=== PATIENT | female | born 1965 | race Caucasian/White ===

== ENCOUNTER → 2016-05-12 | Outpatient (CLI) | payer MEDICAID | LOC: FIMAGING 14:03 | PROVIDERS: ATTEND Nurse Practitioner Women's Health | DX: D25.9 Leiomyoma of uterus, unspecified (principal); N83.202 Unspecified ovarian cyst, left side; N85.2 Hypertrophy of uterus ==

== ENCOUNTER → 2016-06-14 | Outpatient (CLI) | payer MEDICAID ==
[~2016-06-14] MED LIST: GADOBUTROL 10 ML VIAL IVP ONE
== END ==
LOC: FIMAGING 12:58
PROVIDERS: ATTEND Radiology Diagnostic Radiology
DX: D25.2 Subserosal leiomyoma of uterus (principal); D25.1 Intramural leiomyoma of uterus; N85.2 Hypertrophy of uterus
CPT/HCPCS: A9585

== ENCOUNTER 2016-07-20 07:46 | Observation (INO) | payer MEDICAID ==
[2016-07-20] MEDS ORDERED: NS 1,000 ML IV ONE (07:54)
[2016-07-20] MEDS ORDERED: SCOPOLAMINE HYDROBROMIDE 1.5 MG PATCH TD ONE (07:54)
[2016-07-20] MEDS ORDERED: KETOROLAC 30 MG/1 ML SDV IVP ONE ×2 (07:54→09:30)
[2016-07-20] MEDS ORDERED: NALOXONE HCL 0.4 MG/ML INJ ONE (09:00)
[2016-07-20] MEDS ORDERED: MIDAZOLAM 2 MG/2 ML VIAL ONE (09:00)
[2016-07-20] MEDS ORDERED: FLUMAZENIL 0.5 MG/5 ML MDV IVP ONE (09:00)
[2016-07-20] MEDS ORDERED: fentaNYL 100 MCG/2 ML INJ ONE ×2 (09:01)
[2016-07-20] MEDS ORDERED: HYDROmorphONE/DILAUDID 6 MG/30 ML PCA IV ONE (09:26)
[2016-07-20] MEDS ORDERED: IOPAMIDOL (ISOVUE-300) 100 ML BTL IV ONE (10:00)
[2016-07-20] MEDS ORDERED: ONDANSETRON 4 MG/2 ML VIAL ONE ×2 (11:10→11:34)
[2016-07-20] MEDS ORDERED: MAGNESIUM HYDROXIDE 30 ML UDCUP PO PRN (11:39)
[2016-07-20] MEDS ORDERED: ONDANSETRON 4 MG/2 ML VIAL IVP PRN ×2 (11:39→12:30)
[2016-07-20] MEDS ORDERED: LACTULOSE 20 GM/30 ML UDCUP PO PRN (11:39)
[2016-07-20] MEDS ORDERED: BISACODYL 10 MG SUPP PR PRN (11:39)
[2016-07-20] MEDS ORDERED: POLYETHYLENE GLYCOL 3350 17 GM PKT PO PRN (11:39)
[2016-07-20] MEDS ORDERED: oxyCODONE IR 5 MG TAB PO PRN (11:39)
[2016-07-20] MEDS ORDERED: NALOXONE HCL 0.4 MG/ML INJ IVP PRN (11:41)
[2016-07-20] MEDS ORDERED: HYDROmorphONE/DILAUDID 6 MG/30 ML PCA IV PRN (11:41)
--- NOTE | 2016-07-20 11:43 | POSTOPPROG ---
Post Op Note Date of Operation: 07/20/16 Surgeon: Solange Vazquez Anesthesia: IV Sedation (fentanyl and versed) Pre-op Diagnosis: large fibroids Post-op Diagnosis: same Indication: significant symptoms Procedure: UFE Findings: Large bilateral UA with large fibroids Inf/Abcess present in the surg proc area at time of surgery?: No Depth: Superfical (Skin SQ) EBL: Minimal Complications: None
[2016-07-20 12:18] LABS: COLOR YELLOW; LEUKOCYTE ESTERASE,URINE NEGATIVE (NEGATIVE); NITRITE,URINE NEGATIVE (NEGATIVE)
[2016-07-20 12:27] LABS: MUCUS TRACE /lpf (NONE-1+); RBC,URINE 25-50 /hpf (0-3)
[2016-07-20] MEDS ORDERED: LIDOCAINE 1% 30 ML SDV ONE (12:27)
[2016-07-20] MEDS ORDERED: BUPIVACAINE 0.5% 30 ML SDV ONE (12:27)
[2016-07-20] MEDS ORDERED: OXYCODONE/APAP 5/325 TAB PO PRN (12:30)
[2016-07-20] MEDS: KETOROLAC 30 MG/1 ML SDV IVP SCH ×2 (14:54→17:44)
[2016-07-20] MEDS: NS 1,000 ML IV SCH (16:30)
[2016-07-20] MEDS: SENNOSIDES/DOCUSATE SODIUM TAB PO SCH (21:32)
[2016-07-20] MEDS: morphINE SR 15 MG TAB PO SCH (21:32)
[2016-07-21] MEDS: KETOROLAC 30 MG/1 ML SDV IVP SCH ×2 (00:42→06:20)
[2016-07-21] MEDS: NS 1,000 ML IV SCH (00:43)
[2016-07-21] MEDS: morphINE SR 15 MG TAB PO SCH (08:42)
[2016-07-21] MEDS: SENNOSIDES/DOCUSATE SODIUM TAB PO SCH (08:42)
[2016-07-21] MEDS ORDERED: levOFLOXACIN 500 MG/DEXTROSE 100 ML IV ONE (09:00)
[2016-07-21 10:05] VITALS: RESP 18
[2016-07-21] MEDS: IBUPROFEN 600 MG TAB PO SCH ×2 (12:47→18:43)
[2016-07-21] MEDS ORDERED: NS 1,000 ML IV ONE (15:00)
[2016-07-21 16:15] VITALS: BP 107/54; PULSE 64; TEMP 99.3; O2SAT 93
--- NOTE | 2016-07-21 16:20 | SOAPPROG ---
SOAP Progress Note Assessment/Plan: Assessment: Doing very well post UFE. Plan: D/C today. Instructions given to patient. 07/21/16 16:20 Subjective: Had a bit of a rough night last night with nausea, but now feels much better. Has been taking PO. Urinated naturally. Objective: Vital Signs Temp Pulse Resp BP Pulse Ox 36.7 C 76 18 119/67 94 07/21/16 12:00 07/21/16 12:00 07/21/16 12:00 07/21/16 12:00 07/21/16 12:00 07/20/16 07/21/16 07/22/16 05:59 05:59 05:59 Intake Total 3094 600 Output Total 2200 3000 Balance 894 -2400 Right groin without hematoma. Pulses normal. - Pending Discharge Pending Discharge Within 24 Hours: Yes Pending Discharge Within 48 Hours: Yes Pending Discharge Date: 07/22/16 Pending Discharge Time: 11:00 ICD10 Worksheet Patient Problems: Problems Problem Status Onset Fibroids, submucosal Acute - ICD10 Problem Qualifiers (1) Fibroids, submucosal
--- NOTE | 2016-07-22 17:15 | GDS ---
[f rep st] DISCHARGE SUMMARY ADMISSION DIAGNOSIS: Symptomatic uterine fibroids. DISCHARGE DIAGNOSIS: Symptomatic uterine fibroids. PROCEDURE PERFORMED: On July 20, 2016, uterine artery embolization. HOSPITAL COURSE: The patient did very well. [employer] was discontinued the next day by noon. The patien t tolerated oral medications very well, and was discharged in stable condition with a pain level of about 2/10. Detailed discharge instructions were given to the patient, with written instructions handed out. A prescription of Oxy IR was given to the patient for intermittent breakthrough pain. The patient is instructed to follow up with her primary care physician, as well as [facility] physician as previously sche duled. I advised the patient to take a week off work. I will contact the patient for followup in the near future. /[id number]/MODL
== END 2016-07-21 19:33 | disposition home or self-care (01) ==
LOC: FIMAGING 07:46 → F2W 13:38
PROVIDERS: ADMIT Radiology Diagnostic Radiology; ATTEND Radiology Diagnostic Radiology
PROC: B41B1ZZ Fluoroscopy of Other Intra-Abdominal Arteries using Low Osmolar Contrast (ICD-10-PCS; principal; 2016-07-20)
PROC: 04LE3DT Occlusion of Right Uterine Artery with Intraluminal Device, Percutaneous Approach (ICD-10-PCS; principal; 2016-07-20)
PROC: 04LF3DU Occlusion of Left Uterine Artery with Intraluminal Device, Percutaneous Approach (ICD-10-PCS; principal; 2016-07-20)
DX: D25.9 Leiomyoma of uterus, unspecified (principal)
CPT/HCPCS: 36245; 36246; 37243; 75736; 99152; C1769; C1894; G0378; J1170; J1644; J1885; J1956; J2250; J2310; J2405; J3010; Q9967